=== PATIENT | male | born 1960 | race Two or more races ===

== ENCOUNTER 2024-01-17 09:24 | Emergency (ER) | payer OTHER ==
[~2024-01-17] VITALS: Ht 167.6 cm; Wt 68.8 kg
[2024-01-17 09:27] VITALS: BP 146/80; PULSE 89; O2SAT 97
[2024-01-17] MEDS: LIDOcaine 5% patch TP STA (11:19)
[2024-01-17] MEDS ORDERED: TRAM50TA2 PO (11:31)
[2024-01-17 12:05] VITALS: RESP 17; TEMP 98
== END 2024-01-17 11:55 | disposition home or self-care (01) ==
LOC: ER 09:25
DX: M25.512 Pain in left shoulder (principal); Z79.899 Other long term (current) drug therapy
CPT/HCPCS: 73030; 99283